=== PATIENT | female | born 1955 | race Caucasian/White ===

== ENCOUNTER 2018-11-15 18:16 | Emergency (ER) | payer BC, OTHER, SELFPAY ==
[~2018-11-15] VITALS: Ht 157.5 cm; Wt 65.9 kg
[2018-11-15] MEDS ORDERED: OMEP-218 PO (18:37)
[2018-11-15] MEDS ORDERED: ATOR1TAB21 PO (18:37)
[2018-11-15] MEDS ORDERED: CENT1TAB PO (18:37)
[2018-11-15] MEDS ORDERED: BUPR150T3 PO (18:37)
[2018-11-15] MEDS ORDERED: FISH1000 PO (18:37)
[2018-11-15] MEDS ORDERED: B-12100010 PO (18:37)
[2018-11-15] MEDS ORDERED: SERT25TA88 PO (18:37)
[2018-11-15] MEDS ORDERED: CVS1CAP2 PO (18:37)
[2018-11-15] MEDS ORDERED: D 1010004 PO (18:37)
[2018-11-15] MEDS ORDERED: NS 1,000 ML IV ONE (20:30)
[2018-11-15 21:21] LABS: BASO # 0.1 10^3/uL (0.0-0.2); BASO % 0.8 % (0.0-1.0); EOS # 0.3 10^3/uL (0.0-0.50); EOS % 3.9 % (0.0-3.0); HEMATOCRIT 34.7 % (36.0-47.0); HEMOGLOBIN 11.6 g/dl (12.0-15.5); LYMPH # 3.3 10^3/uL (1.5-4.5); LYMPH % 45.2 % (24.0-44.0); MEAN CORPUSCULAR HEMOGLOBIN 32.1 pg (27.0-33.0); MEAN CORPUSCULAR HGB CONC 33.4 g/dl (32.0-36.5); MEAN CORPUSCULAR VOLUME 96.1 fl (80.0-96.0); MONO # 0.7 10^3/uL (0.0-0.8); MONO % 9.8 % (0.0-5.0); NEUTROPHILS # 2.9 10^3/uL (1.8-7.7); PLATELET COUNT, AUTOMATED 232 10^3/uL (150-450); RED BLOOD COUNT 3.61 10^6/uL (4.00-5.40); WHITE BLOOD COUNT 7.2 10^3/uL (4.0-10.0)
[2018-11-15] MEDS ORDERED: GASTROGRAFIN SOLUTION 30ML (Q9963) As Ordered ONE (21:41)
[2018-11-15 21:42] LABS: ALBUMIN 3.8 GM/DL (3.2-5.2); BILIRUBIN,DIRECT 0.1 MG/DL (0.0-0.2); BILIRUBIN,TOTAL 0.3 MG/DL (0.2-1.0); TOTAL PROTEIN 7.1 GM/DL (6.4-8.2)
[2018-11-15] MEDS ORDERED: ISOVUE-370 76% 100ML VIAL (Q9967) As Ordered ONE (22:24)
--- NOTE | 2018-11-15 23:34 | REPVR ---
EXAM: CT Abdomen and Pelvis With Contrast EXAM DATE/TIME: 11/15/2018 10:59 PM CLINICAL HISTORY: 63 years old, female; Condition or disease; Other: Possible fistula; Additional info: ? Rectal-vaginal fistula. Rectal contrast please TECHNIQUE: Imaging protocol: Axial computed tomography images of the abdomen and pelvis with intravenous contrast. Coronal and sagittal reformatted images were created and reviewed. Radiation optimization: All CT scans at this facility use at least one of these dose optimization techniques: automated exposure control; mA and/or kV adjustment per patient size (includes targeted exams where dose is matched to clinical indication); or iterative reconstruction. Contrast material: ISOVUE 370; Contrast volume: 100 ml; Contrast route: IV; COMPARISON: No relevant prior studies available. FINDINGS: Lungs: Subsegmental atelectasis or scarring at the posterior right lung base. Liver: Liver appears normal with no focal abnormality. Gallbladder and bile ducts: Gallbladder is present and shows no evidence of gallstone. Pancreas: Pancreas appears normal. No focal mass or peripancreatic inflammation. Spleen: Spleen appears homogeneous without focal mass. Adrenals: Adrenal glands are normal in appearance. Kidneys and ureters: Kidneys appear normal, with no stone, solid mass or hydronephrosis. Stomach and bowel: No evidence of small bowel obstruction. No evidence of acute diverticulitis. Diverticular changes are present within the colon without inflammation. Moderate pattern of colonic stool is present. Appendix: Appendix is not seen. No RLQ inflammation to suggest appendicitis. Intraperitoneal space: No pneumoperitoneum. No abnormal pelvic mass. Vasculature: Main portal and splenic veins enhance normally. Atherosclerotic change present in the aorta, without aneurysm. Lymph nodes: No enlarged lymph nodes. Bladder: Bladder appears normal. Reproductive: Unremarkable as visualized. Bones/joints: Bony structures show no acute fracture or destructive process. Soft tissues: Unremarkable. IMPRESSION: 1. No acute surgical or inflammatory intra-abdominal or pelvic process. 2. Prominent colonic stool suggesting an element of constipation Electronically signed by: Ryland Vásquez On 11/15/2018 23:34:12 PM
[2018-11-16 00:33] VITALS: BP 135/90
== END 2018-11-16 00:48 | disposition home or self-care (01) ==
LOC: M ED 18:16
DX: K59.00 Constipation, unspecified (principal); F03.90 Unspecified dementia, unspecified severity, without behavioral disturbance, psychotic disturbance, mood disturbance, and anxiety; E78.5 Hyperlipidemia, unspecified; K21.9 Gastro-esophageal reflux disease without esophagitis; Z79.899 Other long term (current) drug therapy; Z88.0 Allergy status to penicillin; Z88.2 Allergy status to sulfonamides
CPT/HCPCS: 36415; 74177; 80047; 80076; 81001; 85025; 99284; Q9963; Q9967

== ENCOUNTER → 2019-08-27 | Outpatient (REF) | payer OTHER ==
[~2019-08-27] MED LIST: ATOR1TAB21 PO; B-12100010 PO; BUPR150T3 PO; CENT1TAB PO; CVS1CAP2 PO; D 1010004 PO; FISH1000 PO; OMEP-218 PO; SERT25TA21 PO
== END ==
LOC: M SFHCLERA 11:07
PROVIDERS: ATTEND Physician Assistant
DX: R30.0 Dysuria (principal)